=== PATIENT | male | born 1965 | race Two or more races ===

== ENCOUNTER 2018-03-28 10:32 | Emergency (ER) | payer OTHER ==
[~2018-03-28] VITALS: Ht 170.2 cm; Wt 72.6 kg
--- NOTE | 2018-03-28 10:40 | NUR ---
ED Nurse Note: Patient came into ED from work ambulatory steady gait a/o x4, due to LEFT thumb and 3rd digit laceration happened at work around 0830 this morning. c/o pain 5/10
[2018-03-28] MEDS ORDERED: NKM (10:41)
[2018-03-28 10:43] VITALS: BP 119/83
[2018-03-28] MEDS ORDERED: Lidocaine 2% MPF 5ml Vial INJ ONE ×2 (10:45→10:53)
--- NOTE | 2018-03-28 11:23 | Diagnostic Imaging Report ---
Indication: Pain, trauma, laceration Technique: For views of the left thumb Comparison: none Findings: There is evidence of soft tissue injury. There is overlying bandage noted. No radiopaque foreign body demonstrated. No definite acute fractures. No dislocations. No evidence of osseous disruption. Impression: No evidence of acute bony trauma or radiopaque foreign body.
[2018-03-28] MEDS ORDERED: Tetanus/Diptheria/Pertussis IM ONE (11:45)
[2018-03-28] MEDS ORDERED: Bacitracin Oint UD TOPIC ONE (13:00)
--- NOTE | 2018-03-28 13:07 | Emergency Room Report ---
History of Present Illness General Chief Complaint: Laceration Source: Patient Present Illness HPI The patient states she was using a knife to cut wood at work. He slipped and cut his left thumb and third digit. He has no other injuries or complaints. His tetanus is likely not updated he stated although he is unsure of when he received it last. Allergies: Coded Allergies: No Known Allergies (Unverified , 03/28/18) Patient History Past Medical History: none, see triage record Social History: Denies: smoking, alcohol use, drug use Reviewed Nursing Documentation: PMH: Agreed; PSxH: Agreed Nursing Documentation-PMH Past Medical History: No Stated History Review of Systems All Other Systems: negative except mentioned in HPI Physical Exam Vital Signs Date Time Temp Pulse Resp B/P (MAP) Pulse Ox O2 Delivery O2 Flow Rate FiO2 03/28/18 10:36 97.3 93 18 119/83 97 Room Air Sp02 EP Interpretation: reviewed, normal General Appearance: no apparent distress, alert, GCS 15, non-toxic Head: normocephalic, atraumatic Eyes: bilateral eye normal inspection, bilateral eye PERRL ENT: hearing grossly normal, normal pharynx, no angioedema, normal voice Neck: full range of motion, supple/symm/no masses Respiratory: no respiratory distress, no retraction, no accessory muscle use, speaking full sentences Rectal: deferred Musculoskeletal: back normal, gait/station normal, normal range of motion, other - L. thumb with crescent shaped laceration (3cm) on the lateral aspect. No e/o tendon involvement upon exploration. FROM, 5/5 MS. 3rd digit with 1cm laceration laterally. Explored: no tendon involvement. FROM, 5/5 MS. Neurologic: alert, oriented x3, responsive, motor strength/tone normal, sensory intact, speech normal Psychiatric: judgement/insight normal, memory normal, mood/affect normal, no suicidal/homicidal ideation Skin: normal color, no rash, warm/dry, well hydrated Procedures Laceration/Wound Repair Laceration/Wound Repair : Consent: Verbal Wound Location: upper extremity Wound's Depth, Shape: superficial Wound Length (cm): 4 Wound Explored: clean Irrigated w/ Saline (ccs): 500 Anesthesia: other - 2% lidocaine Volume Anesthetic (ccs): 5 Wound Repaired With: sutures Suture Size/Type: 5:0, nylon Number of Sutures: 9 Splint Applied?: Yes Patient Tolerated: Well Complications: None Medical Decision Making Diagnostic Impression: Primary Impression: Finger laceration ER Course This patient has lacerations of the left thumb and third finger. They lacerations were explored and there is no evidence of tendon involvement. Lacerations were repaired without competition or incident. See my procedure note. The wound was splinted. The patient's tetanus is updated. I will also place the patient on a course of antibiotics as a precaution. The patient is instructed to follow-up with the workman's comp clinic. Other X-Ray Diagnostic Results Other X-Ray Diagnostic Results : X-Ray ordered: Finger # of Views/Limited Vs Complete: Complete Indication: Other EP Interpretation: No Interpretation: no fractures Impression: No acute disease Electronically Signed by: Angela Michelle DO Last Vital Signs Date Time Temp Pulse Resp B/P (MAP) Pulse Ox O2 Delivery O2 Flow Rate FiO2 03/28/18 10:43 97.3 93 18 119/83 97 Room Air Status: improved Disposition: HOME, SELF-CARE Condition: Improved Referrals: NOT CHOSEN IPA/,REFERRING (PCP) Patient Instructions: Laceration Care, Adult Angela Michelle DO Mar 28, 2018 13:07
[2018-03-28] MEDS ORDERED: IBUPROFEN800 MG ORAL (13:21)
[2018-03-28] MEDS ORDERED: CEPHALEXIN500 MG ORAL (13:21)
[2018-03-28 13:40] VITALS: BP 119/83
--- NOTE | 2018-03-28 13:41 | NUR ---
ED Nurse Note: PT is medically cleared per ERMD order. pt is stable for transfer. pt status condition and vital signs are reported to ERMD prior to DC. pt vital signs are stable. pt is alert and oriented times 4. pt left with all belongings, including DC ntoes and prescriptions. pt was able to teach back and understands DC notes and prescription. pt is instructed to follow up with primary MD as soon as possible, pt is instructed to return to ER if any variance in condition. ID band removed.
== END 2018-03-28 13:42 | disposition home or self-care (01) ==
LOC: EMR 11:15
DX: S61.012A Laceration without foreign body of left thumb without damage to nail, initial encounter (principal); W26.0XXA Contact with knife, initial encounter; Y92.89 Other specified places as the place of occurrence of the external cause; Y99.0 Civilian activity done for income or pay; Z23 Encounter for immunization
CPT/HCPCS: 90471; 90715; 99283

== ENCOUNTER 2019-10-24 10:51 | Emergency (ER) | payer OTHER ==
[~2019-10-24] VITALS: Ht 162.6 cm; Wt 74.8 kg
[~2019-10-24 10:51] MED LIST: CEPHALEXIN500 MG ORAL; IBUPROFEN800 MG ORAL; NKM
[2019-10-24] MEDS ORDERED: oxyCODONE HCL/Acetaminophen 5/325mg ORAL ONE (11:15)
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
[2019-10-24 11:17] VITALS: BP 121/73
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
--- NOTE | 2019-10-24 12:14 | NUR ---
ED Nurse Note: patient was taken to CT via wheelchair
--- NOTE | 2019-10-24 12:33 | NUR ---
ED Nurse Note: patient is back, NAD noted
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
[2019-10-24] MEDS ORDERED: TRAMADOL HCL50 MG ORAL (14:26)
[2019-10-24] MEDS ORDERED: IBUPROFEN600 M1 ORAL (14:26)
[2019-10-24 14:32] VITALS: BP 119/71
--- NOTE | 2019-10-24 14:32 | NUR ---
ED Nurse Note: Pt cleared by ERMD for discharge. DC instructions/prescription was given and explained to pt and verbalized understanding of teachings. All medical deviecs such as ID band removed. Pt is AAO x4, ambulatory and left with all personal belongings. Pt will take uber going home.
--- NOTE | 2019-10-24 14:59 | Diagnostic Imaging Report ---
Indication: Chest pain Technique: 2 views of the chest Comparison: None Findings: Lungs and pleural spaces are clear. The heart size is normal. The bones are unremarkable. No significant interim change. Impression: Negative
== END 2019-10-24 14:32 | disposition home or self-care (01) ==
LOC: EMR 11:20
DX: S09.90XA Unspecified injury of head, initial encounter (principal); V49.3XXA Car occupant (driver) (passenger) injured in unspecified nontraffic accident, initial encounter; Y92.410 Unspecified street and highway as the place of occurrence of the external cause; M79.10 Myalgia, unspecified site; R07.9 Chest pain, unspecified
CPT/HCPCS: 70450; 71046; 99284